=== PATIENT | male | born 1945 | race Caucasian/White ===

== ENCOUNTER 2022-08-20 12:28 | Inpatient (IN) | payer MEDICARE ==
[2022-08-20] MEDS ORDERED: Sodium Chloride 0.9% 10 ML Syringe FLUSH PRN (13:10)
[2022-08-20] MEDS ORDERED: Pantoprazole 80 MG in Sodium Chloride 0.9% 100 ML IV SCH (13:15)
[2022-08-20 13:23] LABS: BASOPHILS ABSOLUTE AUTO 0.04 K/uL (0.00-0.10); BASOPHILS PERCENT AUTO 0.5 % (0.1-1.3); HEMATOCRIT 32.7 % (38.4-49.7); IMMATURE GRAN ABSOLUTE AUTO 0.07 K/uL (0.00-0.23); IMMATURE GRAN PERCENT AUTO 0.8 % (0.0-0.7); LYMPHOCYTES ABSOLUTE AUTO 0.82 K/uL (0.8-3.3); LYMPHOCYTES PERCENT AUTO 9.6 % (11.4-47.7); MEAN CORPUSCULAR HEMOGLOBIN 32.3 pg (31.6-35.5); MEAN CORPUSCULAR HGB CONC 33.6 g/dL (31.6-35.5); MEAN CORPUSCULAR VOLUME 95.9 fL (81.4-99.0); MONOCYTES ABSOLUTE AUTO 0.36 K/uL (0.20-0.90); MONOCYTES PERCENT AUTO 4.2 % (3.3-12.6); NEUTROPHILS ABSOLUTE AUTO 7.26 K/uL (1.0-7.6); NEUTROPHILS PERCENT AUTO 84.9 % (40.0-78.1); PLATELET COUNT,PLT 266 K/uL (130-375); RED BLOOD CELL COUNT 3.41 M/uL (4.14-5.76); WHITE BLOOD CELL COUNT,WBC 8.6 K/uL (3.2-11.0)
[2022-08-20] MEDS: Sodium Chloride 0.9% 1,000 ML IV SCH (13:24)
[2022-08-20 13:40] LABS: INR 1.2; PROTHROMBIN TIME 11.6 sec (9.2-10.6)
[2022-08-20 13:45] LABS: ALANINE AMINOTRANSFERASE,ALT 26 U/L (12-78); ALBUMIN 3.3 g/dL (3.4-5.0); ALKALINE PHOSPHATASE 54 U/L (46-116); ASPARTATE AMNIOTRANSFERASE,AST 13 U/L (15-37); BILIRUBIN TOTAL 0.6 mg/dL (0.2-1.0); BLOOD UREA NITROGEN,BUN 41 mg/dL (7-18); CALCIUM 8.8 mg/dL (8.5-10.1); CARBON DIOXIDE,CO2 26 mmol/L (21-32); CHLORIDE,CL 103 mmol/L (100-108); EST CRCL DRUG DOSING (CG) 66.82 mL/min; ESTIMATED GFR 77 mL/min (>60); GLUCOSE RANDOM 150 mg/dL (74-106); POTASSIUM,K 4.8 mmol/L (3.6-5.2); PROTEIN TOTAL,TP 7.2 g/dL (6.4-8.2); SODIUM,NA 139 mmol/L (140-148)
[2022-08-20 13:48] LABS: A/G RATIO 0.9 (1.2-2.2); ANION GAP 14.8 mmol/L (5.0-14.0)
[2022-08-20 15:01] LABS: APPEARANCE,URINE CLEAR (CLEAR); BILIRUBIN,URINE NEGATIVE (NEGATIVE); COLOR,URINE YELLOW (YELLOW); GLUCOSE,URINE NEGATIVE (NEGATIVE); KETONES,URINE NEGATIVE (NEGATIVE); LEUKOCYTE ESTERASE,URINE NEGATIVE (NEGATIVE); NITRITE,URINE NEGATIVE (NEGATIVE); OCCULT BLOOD,URINE NEGATIVE (NEGATIVE); PROTEIN,URINE NEGATIVE (NEGATIVE); UROBILINOGEN,URINE 0.2 EU/dL (0.2-1.0)
[2022-08-20 15:10] LABS: AMORPHOUS SEDIMENT,URINE NOT SEEN; BACTERIA,URINE RARE; EPITHELIAL CELLS,URINE RARE; MUCUS,URINE RARE; RBC,URINE 0-5 (0-5); WBC,URINE 0-5 (0-5)
[2022-08-20] MEDS ORDERED: Ondansetron 4 MG/2 ML SDV IV PRN (16:29)
[2022-08-20] MEDS ORDERED: Ondansetron 4 MG Tab.DIS PO PRN (16:29)
[2022-08-20] MEDS ORDERED: LORazepam 2 MG/ML SDV IVPUSH PRN (16:29)
[2022-08-20] MEDS ORDERED: Magnesium Hydroxide 400 MG/5 ML Susp 30 ML Cup PO PRN (16:29)
[2022-08-20] MEDS ORDERED: Acetaminophen 325 MG Tab PO PRN (16:29)
[2022-08-20] MEDS ORDERED: Morphine 2 MG/ML SYRINGE IVPUSH PRN (16:29)
[2022-08-20] MEDS: Pantoprazole 40 MG Vial IVPUSH SCH ×2 (17:24→20:28)
[2022-08-20 19:21] LABS: HEMOGLOBIN 10.4 g/dL (12.9-16.9)
[2022-08-20] MEDS: Melatonin 3 MG Tab PO SCH (20:29)
[2022-08-20] MEDS: atorvaSTATin 20 MG Tab PO SCH (20:29)
[2022-08-20] MEDS: Metoprolol Tartrate 50 MG Tab PO SCH (20:29)
[2022-08-20] MEDS: Allopurinol 100 MG Tab PO SCH (20:29)
[2022-08-20] MEDS: DULoxetine 20 MG Cap PO SCH (20:30)
[2022-08-20] MEDS: Tamsulosin 0.4 MG Cap.ER PO SCH (21:08)
[2022-08-21 06:09] LABS: HEMOGLOBIN 8.6 g/dL (12.9-16.9); MEAN CORPUSCULAR HEMOGLOBIN 33.2 pg (31.6-35.5); MEAN CORPUSCULAR HGB CONC 34.4 g/dL (31.6-35.5); MEAN CORPUSCULAR VOLUME 96.5 fL (81.4-99.0); RED BLOOD CELL COUNT 2.59 M/uL (4.14-5.76); WHITE BLOOD CELL COUNT,WBC 7.5 K/uL (3.2-11.0)
[2022-08-21] MEDS: Sodium Chloride 0.9% 1,000 ML IV SCH (06:11)
[2022-08-21 06:24] LABS: A/G RATIO 0.9 (1.2-2.2); ALANINE AMINOTRANSFERASE,ALT 20 U/L (12-78); ALBUMIN 2.8 g/dL (3.4-5.0); ALKALINE PHOSPHATASE 43 U/L (46-116); ANION GAP 9.1 mmol/L (5.0-14.0); ASPARTATE AMNIOTRANSFERASE,AST 12 U/L (15-37); BILIRUBIN TOTAL 0.4 mg/dL (0.2-1.0); BLOOD UREA NITROGEN,BUN 33 mg/dL (7-18); CALCIUM 8.3 mg/dL (8.5-10.1); CARBON DIOXIDE,CO2 24 mmol/L (21-32); CHLORIDE,CL 108 mmol/L (100-108); CREATININE 1.1 mg/dL (0.8-1.3); EST CRCL DRUG DOSING (CG) 60.75 mL/min; ESTIMATED GFR 69 mL/min (>60); GLUCOSE RANDOM 124 mg/dL (74-106); POTASSIUM,K 4.2 mmol/L (3.6-5.2); PROTEIN TOTAL,TP 5.9 g/dL (6.4-8.2); SODIUM,NA 141 mmol/L (140-148)
[2022-08-21] MEDS ORDERED: Propofol 200 MG/20 ML SDV ONE (08:14)
[2022-08-21] MEDS ORDERED: Lidocaine 2% 5 ML SDV ONE (08:15)
[2022-08-21] MEDS: Metoprolol Tartrate 50 MG Tab PO SCH ×2 (09:45→20:09)
[2022-08-21] MEDS: Pantoprazole 40 MG Vial IVPUSH SCH ×2 (09:46→20:10)
[2022-08-21 19:40] LABS: BASOPHILS ABSOLUTE AUTO 0.04 K/uL (0.00-0.10); BASOPHILS PERCENT AUTO 0.4 % (0.1-1.3); EOSINOPHILS ABSOLUTE AUTO 0.09 K/uL (0.00-0.40); HEMOGLOBIN 10.6 g/dL (12.9-16.9); IMMATURE GRAN ABSOLUTE AUTO 0.04 K/uL (0.00-0.23); IMMATURE GRAN PERCENT AUTO 0.4 % (0.0-0.7); LYMPHOCYTES ABSOLUTE AUTO 2.04 K/uL (0.8-3.3); LYMPHOCYTES PERCENT AUTO 22.7 % (11.4-47.7); MEAN CORPUSCULAR HEMOGLOBIN 31.3 pg (31.6-35.5); MEAN CORPUSCULAR HGB CONC 34.2 g/dL (31.6-35.5); MEAN CORPUSCULAR VOLUME 91.4 fL (81.4-99.0); MONOCYTES ABSOLUTE AUTO 0.64 K/uL (0.20-0.90); MONOCYTES PERCENT AUTO 7.1 % (3.3-12.6); NEUTROPHILS ABSOLUTE AUTO 6.14 K/uL (1.0-7.6); NEUTROPHILS PERCENT AUTO 68.4 % (40.0-78.1); PLATELET COUNT,PLT 235 K/uL (130-375); RED BLOOD CELL COUNT 3.39 M/uL (4.14-5.76)
[2022-08-21] MEDS: Tamsulosin 0.4 MG Cap.ER PO SCH (20:08)
[2022-08-21] MEDS: Allopurinol 100 MG Tab PO SCH (20:08)
[2022-08-21] MEDS: DULoxetine 20 MG Cap PO SCH (20:09)
[2022-08-21] MEDS: Melatonin 3 MG Tab PO SCH (20:09)
[2022-08-21] MEDS: atorvaSTATin 20 MG Tab PO SCH (20:09)
[2022-08-22] MEDS ORDERED: Sodium Chloride 0.9% 1,000 ML IV SCH (00:01)
[2022-08-22 05:09] LABS: BASOPHILS ABSOLUTE AUTO 0.03 K/uL (0.00-0.10); BASOPHILS PERCENT AUTO 0.4 % (0.1-1.3); EOSINOPHILS ABSOLUTE AUTO 0.16 K/uL (0.00-0.40); EOSINOPHILS PERCENT AUTO 2.2 % (0.0-5.4); HEMATOCRIT 30.1 % (38.4-49.7); HEMOGLOBIN 10.1 g/dL (12.9-16.9); IMMATURE GRAN ABSOLUTE AUTO 0.03 K/uL (0.00-0.23); IMMATURE GRAN PERCENT AUTO 0.4 % (0.0-0.7); LYMPHOCYTES ABSOLUTE AUTO 1.51 K/uL (0.8-3.3); LYMPHOCYTES PERCENT AUTO 20.7 % (11.4-47.7); MEAN CORPUSCULAR HEMOGLOBIN 30.9 pg (31.6-35.5); MEAN CORPUSCULAR HGB CONC 33.6 g/dL (31.6-35.5); MONOCYTES ABSOLUTE AUTO 0.53 K/uL (0.20-0.90); MONOCYTES PERCENT AUTO 7.3 % (3.3-12.6); NEUTROPHILS ABSOLUTE AUTO 5.03 K/uL (1.0-7.6); PLATELET COUNT,PLT 214 K/uL (130-375); RED BLOOD CELL COUNT 3.27 M/uL (4.14-5.76); WHITE BLOOD CELL COUNT,WBC 7.3 K/uL (3.2-11.0)
[2022-08-22 05:33] LABS: A/G RATIO 0.9 (1.2-2.2); ALANINE AMINOTRANSFERASE,ALT 25 U/L (12-78); ALKALINE PHOSPHATASE 48 U/L (46-116); ASPARTATE AMNIOTRANSFERASE,AST 15 U/L (15-37); BILIRUBIN TOTAL 0.6 mg/dL (0.2-1.0); BLOOD UREA NITROGEN,BUN 16 mg/dL (7-18); CALCIUM 8.4 mg/dL (8.5-10.1); CARBON DIOXIDE,CO2 25 mmol/L (21-32); CHLORIDE,CL 106 mmol/L (100-108); EST CRCL DRUG DOSING (CG) 66.82 mL/min; ESTIMATED GFR 77 mL/min (>60); GLUCOSE RANDOM 122 mg/dL (74-106); PHOSPHORUS 3.6 mg/dL (2.5-4.9); POTASSIUM,K 3.8 mmol/L (3.6-5.2); PRO B-TYPE NATRIUR PEPT,BNPPRO 230 pg/mL (5-450); PROTEIN TOTAL,TP 6.3 g/dL (6.4-8.2); SODIUM,NA 139 mmol/L (140-148)
[2022-08-22 05:40] LABS: ANION GAP 11.8 mmol/L (5.0-14.0)
[2022-08-22] MEDS ORDERED: Metoprolol Tartrate 50 MG Tab PO ONE (06:00)
[2022-08-22] MEDS ORDERED: LORazepam 2 MG/ML SDV IVPUSH STA (07:03)
[2022-08-22] MEDS ORDERED: Ropivacaine 50 ML, dexAMETHasone 8 MG, EPINEPHrine 0.4 MG, Sodium Chloride 0.9% 27.6 ML NERVRT SCH ×4 (08:30)
[2022-08-22] MEDS ORDERED: cefOXitin 2 GM in Sodium Chloride 0.9% 50 ML IV ONE (08:30)
[2022-08-22] MEDS ORDERED: Ketamine 500 MG/5 ML MDV IV SCH (08:30)
[2022-08-22] MEDS ORDERED: Ketamine 23 MG in Sodium Chloride 0.9% 19.77 ML IV SCH (08:30)
[2022-08-22] MEDS: Pantoprazole 40 MG Vial IVPUSH SCH (09:27)
[2022-08-22] MEDS ORDERED: fentaNYL 250 MCG/5 ML SDV ONE ×2 (09:39→12:09)
[2022-08-22] MEDS ORDERED: Ondansetron 4 MG/2 ML SDV ONE (09:39)
[2022-08-22] MEDS ORDERED: Dexamethasone 4 MG/ML SDV ONE (09:39)
[2022-08-22] MEDS ORDERED: Propofol 200 MG/20 ML SDV ONE (09:39)
[2022-08-22] MEDS ORDERED: Succinylcholine 200 MG/10 ML MDV ONE (09:39)
[2022-08-22] MEDS ORDERED: Rocuronium 50 MG/5 ML Vial ONE ×2 (09:39→12:10)
[2022-08-22] MEDS ORDERED: Glycopyrrolate 0.2 MG/ML 5 ML MDV ONE (09:39)
[2022-08-22] MEDS ORDERED: Neostigmine Methylsulfate 1 MG/ML 5 ML Syringe ONE (09:39)
[2022-08-22] MEDS ORDERED: Bupivacaine 0.5% 50 ML MDV ONE (10:09)
[2022-08-22] MEDS ORDERED: Meropenem 500 MG SDV ONE (10:09)
[2022-08-22] MEDS ORDERED: Lidocaine 1% with EPINEPHrine 1:100,000 50 ML MDV ONE (10:09)
[2022-08-22] MEDS ORDERED: Lactated Ringers 1,000 ML ONE ×2 (11:43→13:45)
[2022-08-22] MEDS ORDERED: Bupivacaine 0.5%/EPINEPHrine 1:200,000 50 ML MDV ONE (13:38)
[2022-08-22] MEDS ORDERED: Naloxone 0.4 MG/ML SDV IVPUSH PRN (14:18)
[2022-08-22] MEDS ORDERED: diphenhydrAMINE 50 MG/ML SDV IVPUSH PRN ×2 (14:18→15:45)
[2022-08-22] MEDS ORDERED: diphenhydrAMINE 25 MG Cap PO PRN (14:18)
[2022-08-22] MEDS ORDERED: Ondansetron 4 MG/2 ML SDV IVPUSH PRN ×2 (14:18→15:45)
[2022-08-22] MEDS: HYDROmorphone/Normal Saline 6 MG/30 ML PCA Vial IV PRN (14:30)
[2022-08-22] MEDS ORDERED: Cyclobenzaprine 10 MG Tab PO PRN (15:39)
[2022-08-22] MEDS ORDERED: Metoclopramide 10 MG/2 ML SDV IVPUSH PRN (15:45)
[2022-08-22] MEDS ORDERED: Labetalol 20 MG/4 ML Syringe IVPUSH PRN (15:45)
[2022-08-22] MEDS ORDERED: Acetaminophen 500 MG Tab PO PRN (15:45)
[2022-08-22] MEDS ORDERED: hydrOXYzine HCl 50 MG/ML SDV IM PRN (15:45)
[2022-08-22] MEDS ORDERED: Dextrose 5%-Lactated Ringers 1,000 ML IV SCH (15:45)
[2022-08-22] MEDS: Losartan 50 MG Tab PO SCH (16:15)
[2022-08-22] MEDS: cefOXitin 2 GM in Sodium Chloride 0.9% 50 ML IV SCH ×2 (17:05→23:28)
[2022-08-22] MEDS: MVI, Adult with Vitamin K 10 ML, Thiamine 200 MG, Zinc/Copper/Manganese/Selenium 1 ML i... IV SCH ×4 (17:05)
[2022-08-22] MEDS: atorvaSTATin 20 MG Tab PO SCH (21:03)
[2022-08-22] MEDS: DULoxetine 20 MG Cap PO SCH (21:03)
[2022-08-22] MEDS: Allopurinol 100 MG Tab PO SCH (21:03)
[2022-08-22] MEDS: Acetaminophen 500 MG Tab PO SCH (21:03)
[2022-08-22] MEDS: Tamsulosin 0.4 MG Cap.ER PO SCH (21:03)
[2022-08-22] MEDS: Metoprolol Tartrate 50 MG Tab PO SCH (21:04)
[2022-08-23] MEDS ORDERED: Iopamidol 612 MG/ML 30 ML SDV PO STA (03:48)
[2022-08-23 04:34] LABS: BASOPHILS PERCENT AUTO 0.1 % (0.1-1.3); HEMATOCRIT 33.8 % (38.4-49.7); HEMOGLOBIN 11.3 g/dL (12.9-16.9); IMMATURE GRAN ABSOLUTE AUTO 0.09 K/uL (0.00-0.23); IMMATURE GRAN PERCENT AUTO 0.6 % (0.0-0.7); LYMPHOCYTES ABSOLUTE AUTO 1.62 K/uL (0.8-3.3); LYMPHOCYTES PERCENT AUTO 10.7 % (11.4-47.7); MEAN CORPUSCULAR HGB CONC 33.4 g/dL (31.6-35.5); MEAN CORPUSCULAR VOLUME 92.9 fL (81.4-99.0); MONOCYTES ABSOLUTE AUTO 1.02 K/uL (0.20-0.90); MONOCYTES PERCENT AUTO 6.8 % (3.3-12.6); NEUTROPHILS ABSOLUTE AUTO 12.35 K/uL (1.0-7.6); NEUTROPHILS PERCENT AUTO 81.8 % (40.0-78.1); PLATELET COUNT,PLT 270 K/uL (130-375); RED BLOOD CELL COUNT 3.64 M/uL (4.14-5.76); WHITE BLOOD CELL COUNT,WBC 15.1 K/uL (3.2-11.0)
[2022-08-23 04:42] LABS: BASOPHILS ABSOLUTE AUTO 0.01 K/uL (0.00-0.10)
[2022-08-23 04:59] LABS: A/G RATIO 0.8 (1.2-2.2); ALANINE AMINOTRANSFERASE,ALT 68 U/L (12-78); ALBUMIN 3.2 g/dL (3.4-5.0); ALKALINE PHOSPHATASE 56 U/L (46-116); ASPARTATE AMNIOTRANSFERASE,AST 44 U/L (15-37); BILIRUBIN TOTAL 0.6 mg/dL (0.2-1.0); BLOOD UREA NITROGEN,BUN 13 mg/dL (7-18); CALCIUM 8.4 mg/dL (8.5-10.1); CARBON DIOXIDE,CO2 25 mmol/L (21-32); CHLORIDE,CL 100 mmol/L (100-108); CREATININE 1.2 mg/dL (0.8-1.3); EST CRCL DRUG DOSING (CG) 55.69 mL/min; ESTIMATED GFR 62 mL/min (>60); GLUCOSE RANDOM 186 mg/dL (74-106); MAGNESIUM 1.8 mg/dL (1.8-2.4); PHOSPHORUS 3.4 mg/dL (2.5-4.9); POTASSIUM,K 4.1 mmol/L (3.6-5.2); PRO B-TYPE NATRIUR PEPT,BNPPRO 505 pg/mL (5-450); SODIUM,NA 134 mmol/L (140-148)
[2022-08-23 05:13] LABS: ANION GAP 13.1 mmol/L (5.0-14.0)
[2022-08-23] MEDS: Acetaminophen 500 MG Tab PO SCH ×2 (05:42→14:13)
[2022-08-23] MEDS: cefOXitin 2 GM in Sodium Chloride 0.9% 50 ML IV SCH ×3 (05:43→17:27)
[2022-08-23] MEDS: Dextrose 5%-Lactated Ringers 1,000 ML IV SCH (08:32)
[2022-08-23] MEDS: Metoprolol Tartrate 50 MG Tab PO SCH ×2 (08:37→20:24)
[2022-08-23] MEDS: Losartan 50 MG Tab PO SCH (08:40)
[2022-08-23] MEDS: Pantoprazole 40 MG Vial IVPUSH SCH (08:41)
[2022-08-23] MEDS: HYDROmorphone/Normal Saline 6 MG/30 ML PCA Vial IV PRN (09:54)
[2022-08-23] MEDS: MVI, Adult with Vitamin K 10 ML, Thiamine 200 MG, Zinc/Copper/Manganese/Selenium 1 ML i... IV SCH ×4 (17:27)
[2022-08-23] MEDS: atorvaSTATin 20 MG Tab PO SCH (20:23)
[2022-08-23] MEDS: Allopurinol 100 MG Tab PO SCH (20:24)
[2022-08-23] MEDS: Tamsulosin 0.4 MG Cap.ER PO SCH (20:24)
[2022-08-23] MEDS: DULoxetine 20 MG Cap PO SCH (20:24)
[2022-08-24] MEDS: Acetaminophen 500 MG Tab PO SCH ×4 (00:11→22:45)
[2022-08-24] MEDS: cefOXitin 2 GM in Sodium Chloride 0.9% 50 ML IV SCH ×3 (00:12→11:12)
[2022-08-24 04:14] LABS: HEMATOCRIT 29.1 % (38.4-49.7); MEAN CORPUSCULAR HEMOGLOBIN 31.5 pg (31.6-35.5); MEAN CORPUSCULAR HGB CONC 34.4 g/dL (31.6-35.5); MEAN CORPUSCULAR VOLUME 91.8 fL (81.4-99.0); RED BLOOD CELL COUNT 3.17 M/uL (4.14-5.76)
[2022-08-24 04:45] LABS: A/G RATIO 0.8 (1.2-2.2); ALANINE AMINOTRANSFERASE,ALT 55 U/L (12-78); ALBUMIN 2.8 g/dL (3.4-5.0); ALKALINE PHOSPHATASE 50 U/L (46-116); ASPARTATE AMNIOTRANSFERASE,AST 37 U/L (15-37); BILIRUBIN TOTAL 0.6 mg/dL (0.2-1.0); BLOOD UREA NITROGEN,BUN 9 mg/dL (7-18); CALCIUM 8.1 mg/dL (8.5-10.1); CARBON DIOXIDE,CO2 27 mmol/L (21-32); CHLORIDE,CL 98 mmol/L (100-108); CREATININE 0.9 mg/dL (0.8-1.3); EST CRCL DRUG DOSING (CG) 74.25 mL/min; ESTIMATED GFR 87 mL/min (>60); GLUCOSE RANDOM 149 mg/dL (74-106); MAGNESIUM 1.6 mg/dL (1.8-2.4); PHOSPHORUS 2.7 mg/dL (2.5-4.9); POTASSIUM,K 3.6 mmol/L (3.6-5.2); PRO B-TYPE NATRIUR PEPT,BNPPRO 706 pg/mL (5-450); PROTEIN TOTAL,TP 6.2 g/dL (6.4-8.2); SODIUM,NA 131 mmol/L (140-148)
[2022-08-24 04:46] LABS: ANION GAP 9.6 mmol/L (5.0-14.0)
[2022-08-24] MEDS: Dextrose 5%-Lactated Ringers 1,000 ML IV SCH ×3 (05:24→22:47)
[2022-08-24] MEDS: HYDROmorphone/Normal Saline 6 MG/30 ML PCA Vial IV PRN (05:41)
[2022-08-24] MEDS ORDERED: Bupivacaine 0.5% 50 ML MDV ONE (06:17)
[2022-08-24] MEDS ORDERED: Meropenem 500 MG SDV ONE (06:17)
[2022-08-24] MEDS ORDERED: Lidocaine 1% with EPINEPHrine 1:100,000 50 ML MDV ONE (06:17)
[2022-08-24] MEDS ORDERED: Propofol 200 MG/20 ML SDV ONE ×2 (06:58→07:47)
[2022-08-24] MEDS ORDERED: Ropivacaine 50 ML, dexAMETHasone 8 MG, EPINEPHrine 0.4 MG, Sodium Chloride 0.9% 27.6 ML NERVRT SCH ×4 (08:15)
[2022-08-24] MEDS: Metoprolol Tartrate 50 MG Tab PO SCH ×2 (09:15→20:37)
[2022-08-24] MEDS: Losartan 50 MG Tab PO SCH (09:15)
[2022-08-24] MEDS: Pantoprazole 40 MG Vial IVPUSH SCH (09:15)
[2022-08-24] MEDS: Bisacodyl 5 MG Tab PO SCH ×2 (09:47→20:37)
[2022-08-24] MEDS: Docusate Sodium 100 MG Cap PO SCH ×2 (09:47→20:36)
[2022-08-24] MEDS: Magnesium Sulfate/Water 2 GM in Premix Bag 1 BAG IV SCH ×2 (17:32→22:46)
[2022-08-24] MEDS: atorvaSTATin 20 MG Tab PO SCH (20:37)
[2022-08-24] MEDS: DULoxetine 20 MG Cap PO SCH (20:37)
[2022-08-24] MEDS: Tamsulosin 0.4 MG Cap.ER PO SCH (20:37)
[2022-08-24] MEDS: Allopurinol 100 MG Tab PO SCH (20:39)
[2022-08-24] MEDS: Melatonin 3 MG Tab PO PRN (20:42)
[2022-08-25] MEDS: Magnesium Sulfate/Water 2 GM in Premix Bag 1 BAG IV SCH ×4 (05:35→23:30)
[2022-08-25] MEDS: Acetaminophen 500 MG Tab PO SCH ×3 (05:36→22:16)
[2022-08-25] MEDS: Metoprolol Tartrate 50 MG Tab PO SCH ×2 (08:10→20:41)
[2022-08-25] MEDS: Losartan 50 MG Tab PO SCH (08:11)
[2022-08-25] MEDS: Bisacodyl 5 MG Tab PO SCH ×2 (08:11→20:40)
[2022-08-25] MEDS: Tamsulosin 0.4 MG Cap.ER PO SCH ×2 (08:12→16:54)
[2022-08-25] MEDS: Docusate Sodium 100 MG Cap PO SCH ×2 (08:12→20:41)
[2022-08-25] MEDS: Pantoprazole 40 MG Vial IVPUSH SCH (08:12)
[2022-08-25] MEDS: Allopurinol 100 MG Tab PO SCH (20:40)
[2022-08-25] MEDS: atorvaSTATin 20 MG Tab PO SCH (20:40)
[2022-08-25] MEDS: DULoxetine 20 MG Cap PO SCH (20:40)
[2022-08-25] MEDS: Melatonin 3 MG Tab PO PRN (22:16)
[2022-08-26] MEDS: Magnesium Sulfate/Water 2 GM in Premix Bag 1 BAG IV SCH (04:51)
[2022-08-26] MEDS: Acetaminophen 500 MG Tab PO SCH (06:11)
[2022-08-26] MEDS ORDERED: Pantoprazole 40 MG Tab.CR PO SCH (07:30)
[2022-08-26] MEDS: Tamsulosin 0.4 MG Cap.ER PO SCH (07:33)
[2022-08-26] MEDS: Bisacodyl 5 MG Tab PO SCH (08:56)
[2022-08-26] MEDS: Docusate Sodium 100 MG Cap PO SCH (08:56)
[2022-08-26] MEDS: Losartan 50 MG Tab PO SCH (08:57)
[2022-08-26] MEDS: Metoprolol Tartrate 50 MG Tab PO SCH (08:58)
== END 2022-08-26 13:00 | disposition home or self-care (01) | DRG 354 ==
LOC: JP.ED 12:28 → JP.MS 16:09
PROVIDERS: ADMIT Hospitalist; ATTEND Hospitalist
PROC: 0DB68ZX Excision of Stomach, Via Natural or Artificial Opening Endoscopic, Diagnostic (ICD-10-PCS; 2022-08-21)
PROC: 0WUF0JZ Supplement Abdominal Wall with Synthetic Substitute, Open Approach (ICD-10-PCS; principal; 2022-08-22)
PROC: 0WQF0ZZ Repair Abdominal Wall, Open Approach (ICD-10-PCS; 2022-08-24)
DX: K25.4 Chronic or unspecified gastric ulcer with hemorrhage (principal); K56.609 Unspecified intestinal obstruction, unspecified as to partial versus complete obstruction; K95.89 Other complications of other bariatric procedure; R65.10 Systemic inflammatory response syndrome (SIRS) of non-infectious origin without acute organ dysfunction; K92.2 Gastrointestinal hemorrhage, unspecified; E86.0 Dehydration; D64.9 Anemia, unspecified; E78.5 Hyperlipidemia, unspecified; N40.0 Benign prostatic hyperplasia without lower urinary tract symptoms; F32.A Depression, unspecified; Z20.822 Contact with and (suspected) exposure to COVID-19; I10 Essential (primary) hypertension; I25.10 Atherosclerotic heart disease of native coronary artery without angina pectoris; Z98.890 Other specified postprocedural states; Z98.49 Cataract extraction status, unspecified eye; Z79.82 Long term (current) use of aspirin; Z79.899 Other long term (current) drug therapy; Z95.5 Presence of coronary angioplasty implant and graft; Z87.11 Personal history of peptic ulcer disease
CPT/HCPCS: 36415; 74176; 80053; 81001; 83605; 85025; 85610; 99284; C9113; J3490; J7030; U0002; 36430; 51798; 74019; 74240; 74240-26; 83735; 83880; 84100; 85014; 85018; 85027; 86850; 86900; 86901; 86920; 86922; 87081; 88307; 93005; 93010; 97110-GP; 97161-GP; 97530-GP; 99222; 99232; A9270-GY; J0131; J0171; J0330; J0456; J0694; J1100; J1170; J2020; J2060; J2185; J2405; J2704; J2710; J2795; J3010; J3411; J3475; J7120; J7121; P9016; Q9967

== ENCOUNTER 2022-09-09 20:45 | Emergency (ER) | payer MEDICARE ==
[2022-09-09] MEDS ORDERED: Polyethylene Glycol 3350 Powder 17 GM Packet PO ONE (21:38)
== END 2022-09-09 22:35 | disposition home or self-care (01) ==
LOC: JP.ED 20:45
DX: R33.9 Retention of urine, unspecified (principal); I25.10 Atherosclerotic heart disease of native coronary artery without angina pectoris; I10 Essential (primary) hypertension; Z79.82 Long term (current) use of aspirin; Z79.899 Other long term (current) drug therapy; Z95.5 Presence of coronary angioplasty implant and graft
CPT/HCPCS: 51702; 99283; A9270

== ENCOUNTER 2024-03-07 21:25 | Emergency (ER) | payer MEDICARE ==
[2024-03-07 21:47] LABS: BASOPHILS ABSOLUTE AUTO 0.05 K/uL (0.00-0.10); BASOPHILS PERCENT AUTO 0.5 % (0.1-1.3); EOSINOPHILS ABSOLUTE AUTO 0.06 K/uL (0.00-0.40); EOSINOPHILS PERCENT AUTO 0.6 % (0.0-5.4); HEMATOCRIT 38.6 % (38.4-49.7); IMMATURE GRAN ABSOLUTE AUTO 0.02 K/uL (0.00-0.23); IMMATURE GRAN PERCENT AUTO 0.2 % (0.0-0.7); LYMPHOCYTES ABSOLUTE AUTO 2.13 K/uL (0.8-3.3); LYMPHOCYTES PERCENT AUTO 20.1 % (11.4-47.7); MEAN CORPUSCULAR HEMOGLOBIN 32.8 pg (31.6-35.5); MEAN CORPUSCULAR HGB CONC 36.3 g/dL (31.6-35.5); MEAN CORPUSCULAR VOLUME 90.4 fL (81.4-99.0); MONOCYTES PERCENT AUTO 7.5 % (3.3-12.6); NEUTROPHILS ABSOLUTE AUTO 7.55 K/uL (1.0-7.6); NEUTROPHILS PERCENT AUTO 71.1 % (40.0-78.1); PLATELET COUNT,PLT 316 K/uL (130-375); RED BLOOD CELL COUNT 4.27 M/uL (4.14-5.76); WHITE BLOOD CELL COUNT,WBC 10.6 K/uL (3.2-11.0)
[2024-03-07 22:07] LABS: A/G RATIO 0.9 (1.2-2.2); ALANINE AMINOTRANSFERASE,ALT 31 U/L (12-78); ALKALINE PHOSPHATASE 80 U/L (46-116); ASPARTATE AMNIOTRANSFERASE,AST 18 U/L (15-37); BILIRUBIN TOTAL 0.5 mg/dL (0.2-1.0); BLOOD UREA NITROGEN,BUN 19 mg/dL (7-18); CALCIUM 9.8 mg/dL (8.5-10.1); CARBON DIOXIDE,CO2 22 mmol/L (21-32); CHLORIDE,CL 104 mmol/L (100-108); CREATININE 1.5 mg/dL (0.8-1.3); ESTIMATED GFR 47 mL/min (>60); GLUCOSE RANDOM 124 mg/dL (74-106); POTASSIUM,K 3.4 mmol/L (3.6-5.2); PROTEIN TOTAL,TP 8.3 g/dL (6.4-8.2); SODIUM,NA 139 mmol/L (140-148)
[2024-03-07 22:16] LABS: ANION GAP 16.4 mmol/L (5.0-14.0); EST CRCL DRUG DOSING (CG) 43.11 mL/min
== END 2024-03-07 22:56 | disposition home or self-care (01) ==
LOC: JP.ED 21:25
DX: F41.9 Anxiety disorder, unspecified (principal); I25.2 Old myocardial infarction; Z79.82 Long term (current) use of aspirin; Z79.899 Other long term (current) drug therapy
CPT/HCPCS: 36415; 80053; 85025; 99283

== ENCOUNTER 2024-04-12 16:15 | Emergency (ER) | payer MEDICARE | END 2024-04-12 18:28 | disposition home or self-care (01) | LOC: JP.ED 16:15 | DX: F41.0 Panic disorder [episodic paroxysmal anxiety] (principal); I25.2 Old myocardial infarction; Z88.8 Allergy status to other drugs, medicaments and biological substances; Z79.82 Long term (current) use of aspirin; Z79.899 Other long term (current) drug therapy | CPT/HCPCS: 99283 ==

== ENCOUNTER 2024-04-14 15:13 | Emergency (ER) | payer MEDICARE ==
[2024-04-14] MEDS ORDERED: Sodium Chloride 0.9% 10 ML Syringe FLUSH PRN (16:28)
[2024-04-14 16:42] LABS: BASOPHILS ABSOLUTE AUTO 0.05 K/uL (0.00-0.10); BASOPHILS PERCENT AUTO 0.5 % (0.1-1.3); EOSINOPHILS ABSOLUTE AUTO 0.13 K/uL (0.00-0.40); EOSINOPHILS PERCENT AUTO 1.2 % (0.0-5.4); HEMOGLOBIN 14.1 g/dL (12.9-16.9); IMMATURE GRAN ABSOLUTE AUTO 0.04 K/uL (0.00-0.23); IMMATURE GRAN PERCENT AUTO 0.4 % (0.0-0.7); LYMPHOCYTES ABSOLUTE AUTO 3.17 K/uL (0.8-3.3); MEAN CORPUSCULAR HEMOGLOBIN 31.5 pg (31.6-35.5); MEAN CORPUSCULAR HGB CONC 35.3 g/dL (31.6-35.5); MEAN CORPUSCULAR VOLUME 89.3 fL (81.4-99.0); MONOCYTES ABSOLUTE AUTO 0.79 K/uL (0.20-0.90); MONOCYTES PERCENT AUTO 7.5 % (3.3-12.6); NEUTROPHILS ABSOLUTE AUTO 6.38 K/uL (1.0-7.6); NEUTROPHILS PERCENT AUTO 60.4 % (40.0-78.1); PLATELET COUNT,PLT 325 K/uL (130-375); RED BLOOD CELL COUNT 4.48 M/uL (4.14-5.76); WHITE BLOOD CELL COUNT,WBC 10.6 K/uL (3.2-11.0)
[2024-04-14 16:43] LABS: BASE EXCESS VENOUS 1.4 mm/L; BICARBONATE,VENOUS 21.9 mmol/L; CARBOXYHEMOGLOBIN 2.3 % (0.0-1.6); METHEMOGLOBIN 0.8 %; O2 SATURATION VENOUS 88.1; OXYHEMOGLOBIN 85.4 %; PCO2 VENOUS 24.9 mm/Hg; PH,VENOUS 7.554 (7.350-7.450); PO2 VENOUS 48.9 mm/Hg; TOTAL HEMOGLOBIN 14.6 g/dL (13.5-18.0)
[2024-04-14] MEDS: LORazepam 2 MG/ML SDV IVPUSH ONE (16:47)
[2024-04-14 17:18] LABS: ANION GAP 12.5 mmol/L (5.0-14.0); CALCIUM 9.2 mg/dL (8.5-10.1); CREATININE 1.4 mg/dL (0.8-1.3); EST CRCL DRUG DOSING (CG) 46.19 mL/min; POTASSIUM,K 3.8 mmol/L (3.6-5.2); T3 FREE 2.36 pg/dL (2.18-3.98); T4 FREE 1.05 ng/dL (0.76-1.46); TSH ULTRASENSITIVE 2.669 uIU/mL (0.358-3.740)
== END 2024-04-14 19:08 | disposition home or self-care (01) ==
LOC: JP.ED 15:13
DX: F41.9 Anxiety disorder, unspecified (principal); Z88.8 Allergy status to other drugs, medicaments and biological substances; Z79.82 Long term (current) use of aspirin; Z79.899 Other long term (current) drug therapy
CPT/HCPCS: 36415; 71046; 80048; 82803; 84439; 84443; 84481; 85025; 93005; 96374; 99284; J2060

== ENCOUNTER 2024-04-22 14:55 | Emergency (ER) | payer MEDICARE ==
[2024-04-22 16:02] LABS: APPEARANCE,URINE CLEAR (CLEAR); BILIRUBIN,URINE NEGATIVE (NEGATIVE); COLOR,URINE YELLOW (YELLOW); GLUCOSE,URINE NEGATIVE (NEGATIVE); KETONES,URINE NEGATIVE (NEGATIVE); LEUKOCYTE ESTERASE,URINE NEGATIVE (NEGATIVE); NITRITE,URINE NEGATIVE (NEGATIVE); OCCULT BLOOD,URINE NEGATIVE (NEGATIVE); PROTEIN,URINE NEGATIVE (NEGATIVE); UROBILINOGEN,URINE 0.2 EU/dL (0.2-1.0)
[2024-04-22 16:10] LABS: AMORPHOUS SEDIMENT,URINE NOT SEEN; AMPHETAMINES SCREEN, URINE NEGATIVE (NEGATIVE); BACTERIA,URINE NOT SEEN; BARBITURATE SCREEN,URINE NEGATIVE (NEGATIVE); BENZODIAZEPINES SCREEN,URINE PRESUMPTIVE POSITIVE (NEGATIVE); EPITHELIAL CELLS,URINE RARE; METHADONE SCREEN, URINE NEGATIVE (NEGATIVE); METHAMPHETAMINES SCREEN, URINE NEGATIVE (NEGATIVE); MUCUS,URINE NOT SEEN; OXYCODONE SCREEN,URINE NEGATIVE (NEGATIVE); PROPOXYPHENE SCREEN,URINE NEGATIVE (NEGATIVE); RBC,URINE 0-5 (0-5); THC SCREEN,URINE 50 NG/ML NEGATIVE (NEGATIVE); WBC,URINE 0-5 (0-5)
[2024-04-22 16:16] LABS: BASOPHILS ABSOLUTE AUTO 0.06 K/uL (0.00-0.10); BASOPHILS PERCENT AUTO 0.6 % (0.1-1.3); EOSINOPHILS ABSOLUTE AUTO 0.09 K/uL (0.00-0.40); EOSINOPHILS PERCENT AUTO 0.9 % (0.0-5.4); HEMATOCRIT 39.7 % (38.4-49.7); HEMOGLOBIN 14.3 g/dL (12.9-16.9); IMMATURE GRAN ABSOLUTE AUTO 0.03 K/uL (0.00-0.23); IMMATURE GRAN PERCENT AUTO 0.3 % (0.0-0.7); LYMPHOCYTES ABSOLUTE AUTO 3.18 K/uL (0.8-3.3); LYMPHOCYTES PERCENT AUTO 30.7 % (11.4-47.7); MEAN CORPUSCULAR HEMOGLOBIN 31.7 pg (31.6-35.5); MONOCYTES ABSOLUTE AUTO 0.61 K/uL (0.20-0.90); MONOCYTES PERCENT AUTO 5.9 % (3.3-12.6); NEUTROPHILS ABSOLUTE AUTO 6.39 K/uL (1.0-7.6); NEUTROPHILS PERCENT AUTO 61.6 % (40.0-78.1); PLATELET COUNT,PLT 325 K/uL (130-375); RED BLOOD CELL COUNT 4.51 M/uL (4.14-5.76); WHITE BLOOD CELL COUNT,WBC 10.4 K/uL (3.2-11.0)
[2024-04-22 16:20] LABS: BASE EXCESS VENOUS 2.7 mm/L; BICARBONATE,VENOUS 22.6 mmol/L; CARBOXYHEMOGLOBIN 2.1 % (0.0-1.6); METHEMOGLOBIN 0.9 %; O2 SATURATION VENOUS 67.9; OXYHEMOGLOBIN 65.9 %; PH,VENOUS 7.598 (7.350-7.450); TOTAL HEMOGLOBIN 14.8 g/dL (13.5-18.0)
[2024-04-22 16:21] LABS: PO2 VENOUS 31.7 mm/Hg
[2024-04-22] MEDS: hydrOXYzine HCL 100 MG/2 ML SDV IM ONE (16:27)
[2024-04-22] MEDS: QUEtiapine 25 MG Tab PO ONE (16:27)
[2024-04-22 16:34] LABS: INR 1.1; PROTHROMBIN TIME 11.5 sec (9.2-10.6)
[2024-04-22 16:40] LABS: ALANINE AMINOTRANSFERASE,ALT 38 U/L (12-78); ALBUMIN 4.1 g/dL (3.4-5.0); ALKALINE PHOSPHATASE 79 U/L (46-116); ANION GAP 18.7 mmol/L (5.0-14.0); ASPARTATE AMNIOTRANSFERASE,AST 22 U/L (15-37); BILIRUBIN TOTAL 0.8 mg/dL (0.2-1.0); BLOOD UREA NITROGEN,BUN 18 mg/dL (7-18); CALCIUM 9.4 mg/dL (8.5-10.1); CARBON DIOXIDE,CO2 21 mmol/L (21-32); CHLORIDE,CL 103 mmol/L (100-108); CREATININE 1.2 mg/dL (0.8-1.3); EST CRCL DRUG DOSING (CG) 53.89 mL/min; ESTIMATED GFR 61 mL/min (>60); GLUCOSE RANDOM 98 mg/dL (74-106); POTASSIUM,K 3.7 mmol/L (3.6-5.2); PROTEIN TOTAL,TP 8.4 g/dL (6.4-8.2); SODIUM,NA 139 mmol/L (140-148); TROPONIN I HIGH SENSITIVITY 17.9 pg/mL (<=60.3)
[2024-04-22 16:48] LABS: TSH ULTRASENSITIVE 3.319 uIU/mL (0.358-3.740)
[2024-04-22 16:49] LABS: ACETAMINOPHEN < 0.0 ug/mL (10.0-144.9)
== END 2024-04-22 17:55 | disposition home or self-care (01) ==
LOC: JP.ED 14:55
DX: F41.0 Panic disorder [episodic paroxysmal anxiety] (principal); F45.8 Other somatoform disorders; I10 Essential (primary) hypertension; R79.1 Abnormal coagulation profile; I25.2 Old myocardial infarction; Z88.8 Allergy status to other drugs, medicaments and biological substances; Z79.82 Long term (current) use of aspirin; Z79.899 Other long term (current) drug therapy
CPT/HCPCS: 36415; 70450; 80053; 80143; 80305; 80307; 81001; 82803; 83735; 84443; 84484; 85025; 85610; 93005; 93010; 96372; 99284; 99285; A9270; J3410

== ENCOUNTER 2024-05-25 22:51 | Emergency (ER) | payer MEDICARE ==
[2024-05-26] MEDS: QUEtiapine 25 MG Tab PO ONE (00:30)
[2024-05-26] MEDS: LORazepam 1 MG Tab PO ONE (00:30)
== END 2024-05-26 00:57 | disposition home or self-care (01) ==
LOC: JP.ED 22:51
DX: F41.9 Anxiety disorder, unspecified (principal); I25.2 Old myocardial infarction; Z79.82 Long term (current) use of aspirin; Z79.899 Other long term (current) drug therapy; Z86.16 Personal history of COVID-19
CPT/HCPCS: 99283; A9270